=== PATIENT | female | born 1995 | race Hispanic/Latino ===

== ENCOUNTER 2017-11-28 17:06 | Emergency (ER) | payer BC ==
[2017-11-28 17:20] VITALS: BP 116/75; RESP 18; TEMP 98; O2SAT 97
--- NOTE | 2017-11-28 18:50 | ED PDOC ---
History of Present Illness History of Present Illness: 22 year old female presents to the ED complaining of flu like symptoms. Patient reports a cough that began 6 days ago and worsening symptoms since then. She also reports a stuffy nose, chills, throat pain(now resolved) and intermittent chest pain, usually with coughing. She went to the [facility] and was told that her symptoms were likely attributed to a viral illness. Patient was prescribed Sudafed cough medicine ( last dose 15:00). LNMP was 2 weeks ago. Patient presents for repeat evaluation due to persistence of symptoms. Otherwise denies: urinary symptoms, N/V/D, fever, flank pain, back pain, abdominal pain, rash, prolonged immobility, leg swelling, calf tenderness, SOB , or otalgia. PMD: Dr. Kate Tran MD HPI: Influenza Time Seen by Provider: 11/28/17 17:28 Chief Complaint: Cough, Cold, Congestion Chief Complaint (Provider): Cough, Cold, Congestion History Per: Patient Exam Limitations: no limitations Have you had recent travel within the past 21 days to any of: No Onset/Duration Of Symptoms: Days (x7) Symptoms include: cough, chest pain. denies: vomiting Past Medical History Reviewed: Historical Data Vital Signs: Last Vital Signs Temp 98 F 11/28/17 17:17 Pulse 89 11/28/17 17:17 Resp 18 11/28/17 17:17 BP 116/75 11/28/17 17:17 Pulse Ox 97 11/28/17 17:17 - Medical History PMH: No Chronic Diseases - Surgical History Surgical History: No Surg Hx - Family History Family History: States: Unknown Family Hx - Social History Current smoker - smoking cessation education provided: No Ex-Smoker (has not smoked in the last 12 months): No Alcohol: None Drugs: Denies - Home Medications Home Medications: Ambulatory Orders Medication Instructions Recorded Naproxen 500 mg PO Q12 #20 tab 11/28/17 - Allergies Allergies/Adverse Reactions: Allergies Allergy/AdvReac Type Severity Reaction Status Date / Time No Known Allergies Allergy Verified 11/28/17 17:16 Review of Systems ROS Statement: Except As Marked, All Systems Reviewed And Found Negative Constitutional: Positive for: Chills. Negative for: Fever, Weakness Cardiovascular: Positive for: Chest Pain (secondary to cough) Respiratory: Positive for: Cough. Negative for: Shortness of Breath Gastrointestinal: Negative for: Vomiting Genitourinary Female: Negative for: Dysuria, Frequency, Incontinence Skin: Negative for: Rash Physical Exam - Reviewed Nursing Documentation Reviewed: Yes Vital Signs Reviewed: Yes - Physical Exam Appears: Positive for: Well, Non-toxic, No Acute Distress Head Exam: Positive for: ATRAUMATIC, NORMOCEPHALIC Skin: Positive for: Warm, Dry Eye Exam: Positive for: EOMI, PERRL ENT: Positive for: Pharynx Is (is clear, uvula midline), TM Is/Are (non-buldging , non-erythematous bilaterally). Negative for: Nasal Congestion, Pharyngeal Erythema, Tonsillar Exudate, Tonsillar Swelling Neck: Positive for: Painless ROM, Supple Cardiovascular/Chest: Positive for: Regular Rate, Rhythm, Other (Reproducable anterior chest wall tenderness) Respiratory: Positive for: Normal Breath Sounds (speaking in full sentences, respirations even and nonlabored.). Negative for: Decreased Breath Sounds, Accessory Muscle Use, Respiratory Distress Gastrointestinal/Abdominal: Positive for: Soft. Negative for: Tenderness, Distended, Guarding, Rebound Extremity: Positive for: Normal ROM. Negative for: Calf Tenderness Neurologic/Psych: Positive for: Alert, Oriented (x3), Gait (steady in ED) Medical Decision Making Medical Decision Making: Time: 17:17 Impression: Cough, chest wall pain, likely viral URI/pharyngitis Initial Plan: * Chest X-Ray * Motrin 600 mg PO * EKG Chest X-Ray: no acute distress Patient advised that official radiology read of XR is still pending and will call the patient if there is any discrepancy within 24 hours. EKG: Normal sinus rhythm, 69 BPM, no ST elevation, normal axis, QTC 413 19:00 On re-evaluation, patient reports improvement of symptoms, denies any SOB or chest pain at present. On exam, patient remains AAOx3, in no acute distress. On exam, neck is supple, lungs CTA, cardiac RRR, abdomen is soft and non-tender, neuro exam shows no focal findings. VSS. Diagnostic results d/w the patient in great detail. Dx of cough, chest wall pain , viral URI/pharyngitis d/w the patient. Based on history, exam and diagnostic results plan will be for discharge and outpatient follow up. Advised to follow up with primary care physician in 1-2 days without fail. Advised to take medication as prescribed. Return to the emergency room at any time for any new or worsening symptoms. Patient states she fully agrees with and understands discharge instructions. States that she agrees with the plan and disposition. Verbalized and repeated discharge instructions and plan. I have given the patient opportunity to ask any additional questions. Scribe Attestation: Documented by Faustino Doe acting as a scribe Joceline Yun PA-C. Scribe Attestation: All medical record entries made by the Scribe were at my direction and personally dictated by me. I have reviewed the chart and agree that the record accurately reflects my personal performance of the history, physical exam, medical decision making, and the department course for this patient. I have also personally directed, reviewed, and agree with the discharge instructions and disposition. - ECG ECG: Positive for: Interpreted By Me, Viewed By Me ECG Rhythm: Positive for: Normal ST Segment, Sinus Rhythm (Normal) Rate: 69 O2 Sat by Pulse Oximetry: 97 (RA) Pulse Ox Interpretation: Normal Disposition - Clinical Impression Clinical Impression: Cough, Viral respiratory infection, Chest pain, Sore throat (viral) - Disposition Disposition: Routine/Home Disposition Time: 19:01 Condition: STABLE Prescriptions: Naproxen 500 mg PO Q12 #20 tab Instructions: Viral Pharyngitis, Cough in Adults, Sore Throat in Adults, Chest Pain That Is Not Caused by the Heart (DC), Viral Upper Respiratory Infection, Adult (DC) Forms: [employer] (Urdu), [facility] ED School/Work Excuse Print Language: TURKMEN
[2017-11-28 19:10] VITALS: PULSE 69
--- NOTE | 2017-11-29 08:54 | RAD ---
HISTORY: chest pain, cough COMPARISON: No prior. TECHNIQUE: Chest PA and lateral FINDINGS: LUNGS: No active pulmonary disease. PLEURA: No significant pleural effusion identified. No pneumothorax apparent. CARDIOVASCULAR: Normal. OSSEOUS STRUCTURES: No significant abnormalities. VISUALIZED UPPER ABDOMEN: Normal. OTHER FINDINGS: None. IMPRESSION: No acute cardiopulmonary disease appreciated.
== END 2017-11-28 19:17 | disposition home or self-care (01) ==
LOC: H.ER 17:06
DX: J06.9 Acute upper respiratory infection, unspecified (principal); R07.89 Other chest pain; J02.9 Acute pharyngitis, unspecified